=== PATIENT | male | born 1995 | race Two or more races ===

== ENCOUNTER 2024-05-11 13:14 | Emergency (ER) | payer SELFPAY ==
[2024-05-11] MEDS: Lidocaine 1% 5 ML VIAL INJECT ONE (13:53)
[2024-05-11] MEDS: Sulfamethoxazole/Trimethoprim 800-160 MG Tab PO ONE (14:28)
== END 2024-05-11 14:37 | disposition home or self-care (01) ==
LOC: MW.ED 13:14
DX: L05.91 Pilonidal cyst without abscess (principal); Z75.8 Other problems related to medical facilities and other health care; Z79.899 Other long term (current) drug therapy
CPT/HCPCS: 10080; 99282; A9270; 10060; 99283; J3490